=== PATIENT | male | born 1945 | race Caucasian/White ===

== ENCOUNTER 2016-10-31 09:06 | Outpatient (CLI) | payer MEDICARE ==
[2016-10-31 13:33] LABS: #Basophils 0.1 thou/uL (0.0-0.2); #Eosinphils 0.3 thou/uL (0.0-0.7); #Lymphocytes 1.5 thou/uL (1.20-3.40); #Monocytes 0.4 thou/uL (0.11-0.59); #Neutrophils 2.8 thou/uL (1.40-6.50); %Basophils 1.6 % (0.0-1.0); %Eosinophils 5.6 % (0.0-10.0); %Lymphocytes 29.9 % (21.0-51.0); %Monocytes 8.4 % (0.0-10.0); %Neutrophils 54.6 % (42.0-75.0); Hemoglobin 14.2 g/dL (14.0-18.0); Mean Corpuscular HGB CONC 34.3 g/dL (32.0-36.0); Mean Corpuscular Hemoglobin 32.6 pg (27.0-31.0); Mean Corpuscular Volume 95.3 fl (80.0-94.0); Mean Platelet Volume 7.1 fL (7.4-10.4); Platelet Count 163 thou/uL (130-400); RBC Distribution Width 11.5 % (11.5-14.5); Red Blood Cell (RBC) Count 4.34 mill/uL (4.70-6.10)
[2016-10-31 13:57] LABS: ALT (SGPT) 16 U/L (0-55); AST (SGOT) 22 U/L (5-34); Alkaline Phosphatase 57 U/L (40-150); Anion Gap 13 mmol/L (10-20); BUN (Urea Nitrogen) 19 mg/dL (8.4-25.7); Bilirubin, Direct 0.2 mg/dL (0.1-0.3); Bilirubin, Total 0.5 mg/dL (0.2-1.2); Calc. Creatinine Clearance 0 mL/min (70-130); Calcium 9.1 mg/dL (7.8-10.44); Carbon Dioxide 27 mmol/L (23-31); Cardiac Risk 3.8 (Less than 4.5); Chloride 105 mmol/L (98-107); Cholesterol 180 mg/dL (< 200 Desired); Estimated GFR-MDRD 59; Glucose 83 mg/dL (83-110); HDL Cholesterol 48 mg/dL (>60 Neg Risk); LDL Cholesterol, Calculated 113 mg/dL; Potassium 4.7 mmol/L (3.5-5.1); Protein, Total 6.3 g/dL (5.8-8.1); Sodium 140 mmol/L (136-145); Triglycerides 94 mg/dL (Less than 150)
[2016-10-31 14:25] LABS: Hemoglobin A1c 5.2 % (4.0-6.0)
== END 2016-10-31 09:07 | disposition home or self-care (01) ==
LOC: NAVSJIPCSP 09:06
PROVIDERS: ATTEND Family Medicine
DX: E27.0 Other adrenocortical overactivity (principal); M79.676 Pain in unspecified toe(s); M79.1 Myalgia; I49.9 Cardiac arrhythmia, unspecified
CPT/HCPCS: 36415; 80048; 80061; 80076; 83036; 84443; 85025

== ENCOUNTER 2019-02-25 12:28 | Outpatient (CLI) | payer MEDICARE, OTHER ==
--- NOTE | 2019-02-25 12:57 | RAD ---
EXAM: XR Mandible 4 View STANDARD PROVIDED CLINICAL HISTORY: Pain FINDINGS: There is no evidence for fracture or other acute osseous abnormality. Alignment appears anatomic. Lissette nt spaces appear preserved. IMPRESSION: No evidence for an acute osseous abnormality. If there is persistent clinical concern, conservative m anagement and follow-up imaging advised.
== END 2019-02-25 12:29 | disposition home or self-care (01) ==
LOC: NAV RAD 12:28
PROVIDERS: ATTEND Family Medicine
DX: S00.83XA Contusion of other part of head, initial encounter (principal); R68.84 Jaw pain; T07.XXXA Unspecified multiple injuries, initial encounter; Z87.828 Personal history of other (healed) physical injury and trauma
CPT/HCPCS: 70110

== ENCOUNTER 2019-09-27 08:16 | Emergency (ER) | payer MEDICARE, OTHER ==
--- NOTE | 2019-09-27 09:08 | CT ---
CT head noncontrast HISTORY: Fall. Head injury. FINDINGS: There is no evidence of acute intracranial hemorrhage or infarct. Ventricles appear normal in size, shape and position. There is no mass effect or shift of midline structures. Chronic appearing mucosal thickening within the left frontal sinus. Soft tissue injury and fracture at the level of the nose is partially visualized. CT face reported se johanna. IMPRESSION: No acute intracranial abnormalities are demonstrated.
[2019-09-27] MEDS ORDERED: Lidocaine 1% (PF) 30 ML VIAL ONE (09:09)
--- NOTE | 2019-09-27 09:13 | CT ---
CT face noncontrast HISTORY: Fall. Head injury. FINDINGS: Small amount of soft tissue gas at the nasal bridge overlies a minimally displaced fracture involving primarily the right side of the nasal bone. Tiny radiopaque foreign body associated with the right frontal scalp swelling. Zygomatic arches and globes are intact. Chronic appearing mucosal thickening of the left ethmoid air cells and frontal sinus. Deformity of each mandibular condyle has the appearance of old, healed but malaligned fractures. Resu ltant prominent OsteoArthritic changes. IMPRESSION: Minimally displaced nasal bone fracture with overlying laceration and soft tissue gas. Old, healed malaligned bilateral mandibular condyle fractures.
--- NOTE | 2019-09-27 09:19 | CT ---
CT cervical spine noncontrast HISTORY: Fall. Neck injury. FINDINGS: Vertebral body heights and alignment are maintained. Osteophytosis throughout the vertebral bodies and facets. Mild posterior disc bulge at the C3-4 level with calcification of the posterior annulus. Severe bilateral foraminal stenoses at the C5-6 level. Less prominent foraminal stenoses elsewhere. C ervicothoracic junction is intact. No acute fracture or dislocation. Chronic deformity of each mandibular condyle partially visualized. Better detailed on separate CT fac e exam. IMPRESSION: Osteoarthritic changes of the cervical spine. No acute osseous abnormalities are demonstr ated.
[2019-09-27] MEDS ORDERED: Bacitracin 1 PK ONE (09:51)
== END 2019-09-27 10:00 | disposition home or self-care (01) ==
LOC: NAV ERS 08:16
DX: S02.2XXA Fracture of nasal bones, initial encounter for closed fracture (principal); S01.81XA Laceration without foreign body of other part of head, initial encounter; I10 Essential (primary) hypertension; Z79.899 Other long term (current) drug therapy; W01.198A Fall on same level from slipping, tripping and stumbling with subsequent striking against other object, initial encounter
CPT/HCPCS: 12013; 70450; 70486; 72125; J2001

== ENCOUNTER 2020-02-14 06:19 | Emergency (ER) | payer MEDICARE, OTHER ==
[2020-02-14 06:46] LABS: Hemoglobin 14.3 g/dL (14.0-18.0); Red Blood Cell (RBC) Count 4.57 mill/uL (4.70-6.10); White Blood Cell (WBC) Count 5.7 thou/uL (4.8-10.8)
[2020-02-14 06:47] LABS: #Basophils 0.1 thou/uL (0.0-0.2); #Eosinphils 0.3 thou/uL (0.0-0.7); #Lymphocytes 1.6 thou/uL (1.20-3.40); #Monocytes 0.5 thou/uL (0.11-0.59); #Neutrophils 3.2 thou/uL (1.40-6.50); %Basophils 1.4 % (0.0-1.0); %Eosinophils 6.1 % (0.0-10.0); %Lymphocytes 27.4 % (21.0-51.0); %Monocytes 9.6 % (0.0-10.0); %Neutrophils 55.5 % (42.0-75.0); Manual Diff?? NO; Mean Corpuscular HGB CONC 32.4 g/dL (32.0-36.0); Mean Corpuscular Hemoglobin 31.2 pg (27.0-31.0); Mean Corpuscular Volume 96.4 fL (78.0-98.0); Platelet Count 188 thou/uL (130-400); RBC Distribution Width 11.2 % (11.5-14.5)
[2020-02-14] MEDS ORDERED: Aspirin Chewable 81 MG TAB ONE (06:57)
[2020-02-14] MEDS ORDERED: Nitroglycerin 2% Ointment 1 INCH/1 GM Packet ONE (06:57)
[2020-02-14 07:06] LABS: ALT (SGPT) 19 U/L (8-55); AST (SGOT) 20 U/L (5-34); Albumin 3.9 g/dL (3.4-4.8); Alkaline Phosphatase 65 U/L (40-110); Anion Gap 11 mmol/L (10-20); BUN (Urea Nitrogen) 22 mg/dL (8.4-25.7); Bilirubin, Total 0.4 mg/dL (0.2-1.2); CK (CPK) 78 U/L (30-200); Calc. Creatinine Clearance 0 mL/min (70-130); Carbon Dioxide 28 mmol/L (23-31); Chloride 104 mmol/L (98-107); Estimated GFR-MDRD 58; Globulin 2.5 g/dL (2.4-3.5); Glucose 92 mg/dL (83-110); Potassium 4.1 mmol/L (3.5-5.1); Protein, Total 6.4 g/dL (5.8-8.1); Sodium 139 mmol/L (136-145)
--- NOTE | 2020-02-14 09:06 | RAD ---
PORTABLE CHEST: Date: 02/14/2020 PROVIDED CLINICAL HISTORY: Chest pressure. FINDINGS: Cardiac and mediastinal silhouette is within normal limits. No focal consolidation, pleural fluid, or pneumothorax apparent. IMPRESSION: No evidence for acute cardiopulmonary process. POS: [facility]
== END 2020-02-14 08:34 | disposition short-term general hospital (02) ==
LOC: NAV ERS 06:19
DX: R07.9 Chest pain, unspecified (principal); I10 Essential (primary) hypertension; Z79.899 Other long term (current) drug therapy
CPT/HCPCS: 71045; 80053; 82550; 84484; 85025; 93005; 94760

== ENCOUNTER 2023-01-27 16:42 | Emergency (ER) | payer MEDICARE, OTHER | END 2023-01-27 17:53 | disposition home or self-care (01) | LOC: NAV ERS 16:42 | DX: B34.9 Viral infection, unspecified (principal); I10 Essential (primary) hypertension | CPT/HCPCS: 87081; 87430; 87804; 99284 ==

== ENCOUNTER 2023-08-21 21:14 | Emergency (ER) | payer MEDICARE, OTHER ==
[2023-08-21 22:06] LABS: #Basophils 0.1 thou/uL (0.0-0.2); #Eosinphils 0.2 thou/uL (0.0-0.7); #Lymphocytes 1.1 thou/uL (1.20-3.40); #Monocytes 0.7 thou/uL (0.11-0.59); #Neutrophils 5.7 thou/uL (1.40-6.50); %Eosinophils 3.1 % (0.0-10.0); %Lymphocytes 14.4 % (21.0-51.0); %Monocytes 8.6 % (0.0-10.0); Hematocrit 39.9 % (42.0-52.0); Hemoglobin 13.6 g/dL (14.0-18.0); Mean Corpuscular HGB CONC 34.1 g/dL (32.0-36.0); Mean Corpuscular Hemoglobin 31.7 pg (27.0-31.0); Mean Corpuscular Volume 92.9 fl (78.0-98.0); Mean Platelet Volume 7.4 fL (7.4-10.4); Platelet Count 210 10x3/uL (130-400); RBC Distribution Width 11.7 % (11.5-14.5); Red Blood Cell (RBC) Count 4.29 mill/uL (4.70-6.10); White Blood Cell (WBC) Count 7.8 10x3/uL (4.8-10.8)
[2023-08-21 22:08] LABS: Bilirubin Negative (Negative); Blood, Urine Negative (Negative); Clarity Clear (Clear); Glucose, Urine (Dipstick) Negative (Negative); Ketone, Urine Negative (Negative); Leukocyte Negative (Negative); Nitrite Negative (Negative); Protein, Urine (Dipstick) Negative (Neg-Trace); Urobilinogen 0.2 mg/dL (Less than 2); pH, Urine 5.5 (5.0-9.0)
[2023-08-21 22:13] LABS: Bacteria/HPF None Seen HPF (None Seen); CAUTI Indications for Culture Fever or rigors; RBC/HPF None Seen HPF (0-3); Squamous Epithelial None Seen HPF (0-3); WBC/HPF None Seen HPF (0-3)
[2023-08-21 22:14] LABS: Urine Culture Reflex No No
[2023-08-21 22:24] LABS: ALT (SGPT) 22 U/L (8-55); AST (SGOT) 29 U/L (5-34); Albumin 3.8 g/dL (3.4-4.8); Alkaline Phosphatase 63 U/L (40-110); Anion Gap 14 mmol/L (10-20); BUN (Urea Nitrogen) 24 mg/dL (8.4-25.7); Bilirubin, Total 0.4 mg/dL (0.2-1.2); Calc. Creatinine Clearance 0 mL/min (70-130); Calcium 9.1 mg/dL (7.8-10.44); Carbon Dioxide 23 mmol/L (23-31); Chloride 107 mmol/L (98-107); Estimated GFR 61; Globulin 2.5 g/dL (2.4-3.5); Glucose 114 mg/dL (83-110); Potassium 4.3 mmol/L (3.5-5.1); Protein, Total 6.3 g/dL (5.8-8.1); Sodium 140 mmol/L (136-145)
== END 2023-08-21 23:20 | disposition home or self-care (01) ==
LOC: NAV ERS 21:14
DX: R10.31 Right lower quadrant pain (principal); I10 Essential (primary) hypertension
CPT/HCPCS: 80053; 81001; 85025; 99284